=== PATIENT | female | born 1970 | race Caucasian/White ===

== ENCOUNTER 2016-03-05 08:17 | Outpatient (CLI) | payer OTHER | END 2016-03-05 08:18 | disposition home or self-care (01) | DX: M81.0 Age-related osteoporosis without current pathological fracture (principal); Z79.83 Long term (current) use of bisphosphonates ==

== ENCOUNTER 2018-01-30 10:29 | Emergency (ER) | payer OTHER ==
[2018-01-30 10:38] VITALS: BP 120/59
--- NOTE | 2018-01-30 10:58 | ED Physician Documentation ---
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 She had infused insulin subcutaneously in a patient at [facility], and was recapping the needle when she poked the pad of her right thumb. She is right-hand dominant. Her tetanus status is up-to-date. The source patient has history of CHF and COPD. He is available for further testing. Review of Systems Constitutional: denies: Fever : reports: Other (Postmenopausal) Skin: reports: Other (Needlestick). 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 - Present Medications Home Medications: Ambulatory Orders Medication Instructions Recorded Confirmed Atorvastatin [Lipitor] 40 mg pe 01/30/18 Calcium Carbonate [Calcium] 01/30/18 Cholecalciferol (Vitamin D3) 01/30/18 [Vitamin D3] - Allergies Allergies/Adverse Reactions: Allergies Allergy/AdvReac Type Severity Reaction Status Date / Time hydromorphone [From Dilaudid] Allergy Unknown Verified 01/30/18 10:39 Penicillins Allergy Rash Verified 01/30/18 10:38 - Social History Does the pt smoke?: No Smoking Status: Never smoker Does the pt drink ETOH?: No Does the pt have substance abuse?: No - Immunizations Immunizations are current?: Yes PD ED PE NORMAL - Vitals Vital signs reviewed: Yes (normal) - General General: Alert and oriented X 3, Well developed/nourished - HEENT HEENT: Atraumatic, Pharynx benign - Neck Neck: No adenopathy, No JVD - Cardiac Cardiac: RRR, No murmur - Respiratory Respiratory: No respiratory distress, Clear bilaterally - Derm Derm: No rash - Extremities Extremities: Other (There is a small needle poke on the volar pad of the right distal thumb. There is no swelling, erythema, and distal neurovascular is intact.) - Neuro Neuro: Alert and oriented X 3, No motor deficit, No sensory deficit Results - Vitals Vitals: Vital Signs - 24 hr 01/30/18 10:37 Temperature 36 C L Heart Rate 63 Respiratory 14 Rate Blood Pressure 120/59 L O2 Saturation 100 - Labs Labs: Laboratory Tests 01/30/18 01/30/18 10:55 10:55 WBC 4.2 L RBC 3.91 L Hgb 11.9 L Hct 34.3 L MCV 87.7 MCH 30.4 MCHC 34.7 RDW 13.4 Plt Count 230 MPV 6.5 L Sodium 135 Potassium 3.8 Chloride 101 Carbon Dioxide 27 Anion Gap 7.0 BUN 18 Creatinine 0.7 Estimated GFR (MDRD) 90 Glucose 93 Calcium 9.5 Total Bilirubin 1.5 H AST 26 ALT 27 Alkaline Phosphatase 55 Total Protein 7.6 Albumin 4.8 Globulin 2.8 Albumin/Globulin Ratio 1.7 PD MEDICAL DECISION MAKING - ED course Complexity details: considered differential, d/w patient, other (An L & I form was completed.) ED course: The patient's presentation is significant for an occupational needle stick to the volar pad of her right thumb. The exposure is low risk, and the source patient is available for further testing. Baseline labs were drawn, and the results are pending. I discussed with the patient the low risk nature of her exposure, and whether or not to treat prophylactically with antiretroviral therapy. She agrees that she would rather not take the medication at this time. I discussed with her outpatient follow-up, as well as potentially worrisome signs or symptoms that should prompt reevaluation in the emergency department. Departure - Departure Disposition: 01 Home, Self Care Clinical Impression: Needlestick injury due to hypodermic needle Condition: Stable Instructions: ED Body Fluid Exp HC Worker Follow-Up: NATALIE Mays [Provider Group] Comments: Keep the wound area clean. Blood should be drawn from the source patient for HIV and hepatitis screening. Follow-up with your primary physician for results of the blood tests and for potential future blood testing. Return to the emergency department if you develop any sign of infection, or otherwise worsening symptoms. Discharge Date/Time: 01/30/18 11:14
[2018-01-30 11:05] LABS: HGB - HEMOGLOBIN 11.9 g/dL (12.0-16.0); MEAN CORPUSCULAR HEMOGLOBIN 30.4 pg (27.0-31.0); MEAN CORPUSCULAR HGB CONC 34.7 g/dL (32.0-36.0); MEAN CORPUSCULAR VOLUME 87.7 fL (81.0-99.0); MEAN PLATELET VOLUME 6.5 fL (7.9-10.8); RED BLOOD COUNT 3.91 10^6/uL (4.20-5.40); RED CELL DISTRIBUTION WIDTH 13.4 % (12.0-15.0); WHITE BLOOD COUNT 4.2 x10^3/uL (4.8-10.8)
[2018-01-30 11:15] LABS: ALBUMIN 4.8 g/dL (3.2-5.5); ALBUMIN/GLOBULIN RATIO 1.7 (1.0-2.2); BILIRUBIN,TOTAL 1.5 mg/dL (0.2-1.0); CALCIUM 9.5 mg/dL (8.5-10.3); CREATININE 0.7 mg/dL (0.4-1.0); TOTAL PROTEIN 7.6 g/dL (6.7-8.2)
[2018-01-31 13:13] LABS: HEPATITIS C ANTIBODY NON-REACTIVE (NON-REACTIVE)
[2018-01-31 14:48] LABS: HIV AG/AB 4TH GEN NON-REACTIVE (NON-REACTIVE)
== END 2018-01-30 11:14 | disposition home or self-care (01) ==
LOC: ED 10:29
DX: S61.031A Puncture wound without foreign body of right thumb without damage to nail, initial encounter (principal); W46.1XXA Contact with contaminated hypodermic needle, initial encounter; Y93.F9 Activity, other caregiving; Y92.129 Unspecified place in nursing home as the place of occurrence of the external cause; Y99.0 Civilian activity done for income or pay
CPT/HCPCS: 1040M; 36415; 80053; 85027; 86317; 86803; 87389; 99282; 99283

== ENCOUNTER 2018-05-21 09:41 | Outpatient (CLI) | payer OTHER ==
--- NOTE | 2018-05-21 12:55 | DEXA Report ---
Reason: AGE-RELATED OSTEOPOROSIS W/O CURRENT PATHOLOGICAL Procedure Date: 05/21/2018 Accession Number: [id number] / [id number] Procedure: DEX - Dexa Spine and/or Hip CPT Code: FULL RESULT: EXAM: Dexa Spine and/or Hip DATE: 05/21/2018 10:36 AM CLINICAL HISTORY: AGE-RELATED OSTEOPOROSIS W/O CURRENT PATHOLOGICAL TECHNIQUE: Dual energy x-ray absorptiometry (DXA) was performed on a [employer] System. Regions measured are the AP Spine, femoral neck, and if needed forearm. COMPARISON: 03/05/2016 In accordance with the International Society for Clinical Densitometry (ISCD) guidelines, data from previous exams may be reanalyzed using current recommendations and techniques. This is done to allow a more accurate basis for comparison with the current study. FINDINGS: The data for the lumbar spine is as follows: BMD (g/cm/cm) T-SCORE Z-SCORE REGION L1 0.779 -2.9 -2.0 L2 0.845 -3.0 -2.0 L3 0.922 -2.3 -1.4 L4 0.907 -2.4 -1.5 TOTAL 0.870 -2.6 -1.7 NOTE: All evaluable vertebrae are used for classification The data for the hip is as follows: BMD (g/cm/cm) T-SCORE Z-SCORE REGION Neck 0.725 -2.2 -1.1 TOTAL 0.705 -2.4 -1.5 NOTE: The femoral neck or total proximal femur, whichever is lowest, is used for classification. DXA RESULTS SUMMARY: Spine SCAN DATE AGE BMD CHANGE VS CHANGE VS PREVIOUS PREVIOUS % 05/21/2018 48.0 0.870 0.003 0.3 03/05/2016 45.8 0.867 * Denotes significant change at the 95% confidence level. Denotes dissimilar scan types or analysis methods. DXA RESULTS SUMMARY: Hip SCAN DATE AGE BMD CHANGE VS CHANGE VS PREVIOUS PREVIOUS % 05[birth year]21/2018 48.0 0.705 -0.069* -8.9* 03/05/2016 45.8 0.774 * Denotes significant change at the 95% confidence level. Denotes dissimilar scan types or analysis methods. IMPRESSION: THE WHO CLASSIFICATION BASED ON THE INTERNATIONAL REFERENCE STANDARD IS OSTEOPOROSIS. THE FRACTURE RISK IS HIGH. RECOMMENDATION: Patients with diagnosis of osteoporosis or osteopenia should have regular bone mineral density assessment. For those eligible for Medicare, routine testing is allowed once every 2 years. Testing frequency can be increased for patients who have rapidly progressing disease or for those who are receiving medical therapy to restore bone mass. COMMENT: World Health Organization (WHO) definitions for osteoporosis and osteopenia: NORMAL BMD: T-score at -1.0 or higher, fracture risk is low OSTEOPENIA BMD: T-score between -1.0 and -2.5, fracture risk is increased. OSTEOPOROSIS BMD: T-score at -2.5 or lower, fracture risk is high. National Osteoporosis Foundation recommends: 1. Obtain adequate dietary calcium (at least 1200 mg per day) and vitamin D (400-800 international units per day). 2. Participate, as appropriate, in regular weightbearing and muscle-strengthening exercise. 3. Avoid tobacco use and reduce alcohol and caffeine intake. 4. For more detailed information see the website at www.NOF.org.
== END 2018-05-21 09:42 | disposition home or self-care (01) ==
LOC: DI 09:41
PROVIDERS: ATTEND Internal Medicine
DX: M81.0 Age-related osteoporosis without current pathological fracture (principal)
CPT/HCPCS: 77080

== ENCOUNTER 2021-07-27 08:22 | Outpatient (CLI) | payer OTHER ==
--- NOTE | 2021-07-27 10:13 | DEXA Report ---
PROCEDURE: Dexa Spine and/or Hip INDICATIONS: OSTEOPOROSIS TECHNIQUE: Dual energy x-ray absorptiometry (DXA) was performed on a [employer] System. Regions measur ed are the AP Spine, femoral neck, and if needed forearm. COMPARISON: 05/21/2018 and 03/05/2016. FINDINGS: Lumbar Spine: Bone Mineral Density 0.920 g/cm/cm,T score -2.2, osteopenia Left Hip: Bone Mineral Density 0.75 to g/cm/cm,T score -2.0, osteopenia Left Femoral Neck: Bone Mineral Density 0.728 g/cm/cm, T score -2.2, osteopenia (T score greater or equal to -1.0: NORMAL) (T score from -1.1 to -2.4: OSTEOPENIA) (T score less than or equal to -2.5 to: OSTEOPOROSIS) Impression: Osteopenia. Bone mineral density is increased 6.7% in the interval since prior exam obtained 05/21/2018 . Patients with diagnosis of osteoporosis or osteopenia should have regular bone mineral density assess ment. For those eligible for Medicare, routine testing is allowed once every 2 years. Testing frequ ency can be increased for patients who have rapidly progressing disease or for those who are receivin g medical therapy to restore bone mass. Reviewed by: Candis Al MD, PhD on 07/27/2021 10:12 AM PDT Approved by: Candis Al MD, PhD on 07/27/2021 10:12 AM PDT Station ID: [id number]
== END 2021-07-27 08:23 | disposition home or self-care (01) ==
LOC: DI 08:22
PROVIDERS: ATTEND Internal Medicine
DX: M85.89 Other specified disorders of bone density and structure, multiple sites (principal)